=== PATIENT | male | born 1980 | race Caucasian/White ===

== ENCOUNTER 2025-02-22 15:52 | Outpatient (CLI) | payer BC, SELFPAY ==
--- NOTE | ~2025-02-22 | XR_ITS ---
EXAMINATION: XR knee LT 3V, 02/22/2025 15:58 CDT HISTORY: Pain in left knee x 2 months, no inj, swelling, rom decreas COMPARISON: No comparisons available. Findings: No acute fracture or malalignment. Moderate tricompartmental degenerative changes Soft tissues unremarkable. Impression: No acute fracture or malalignment. Reviewed, dictated and finalized at location P. Impression: No acute fracture or malalignment.
== END 2025-02-22 15:53 | disposition home or self-care (01) ==
LOC: GOSHIMG 15:52
PROVIDERS: PCP Student in an Organized Health Care Education/Training Program; Visit Provider Student in an Organized Health Care Education/Training Program
DX: M17.12 Unilateral primary osteoarthritis, left knee (principal)
CPT/HCPCS: 73562